=== PATIENT | female | born 1995 | race Caucasian/White ===

== ENCOUNTER 2018-03-11 02:55 | Emergency (ER) | payer OTHER, MEDICAID ==
[~2018-03-11] VITALS: Ht 170.2 cm; Wt 88.5 kg
[~2018-03-11 02:55] MED LIST: ACETAMINOPHEN-1 EAC1 PO; AMOXICILLIN 50500 MG PO; AMOXICILLIN875 MG PO; AUGMENTIN 875875 MG PO; BACTRIM DS TAB1 EACH PO; BACTROBAN CREAM30 G1 TOP; BIRTH CONTROL; BUTALB-APAP-CA1 EACH PO; FLAGYL500 MG PO; HYDROCODON-ACE1 EAC7 PO; IBUPROFEN 800800 M1 PO; LIDOCAINE VISC100 M1 SWISH&SPIT; NAPROSYN500 MG PO; NYSTATIN 100,0015 G1 SW&SWALLOW; PENICILLIN V P500 MG PO; PENICILLIN VK250 MG PO; VISTARIL 25 MG25 M1 PO; ZOFRAN ODT4 MG PO; ZOFRAN4 MG PO
[2018-03-11] MEDS ORDERED: HYDROCODONE-AP1 EAC6 PO (03:19)
[2018-03-11] MEDS ORDERED: PENICILLIN VK500 MG PO (03:19)
[2018-03-11 03:29] VITALS: BP 145/86
== END 2018-03-11 03:58 | disposition home or self-care (01) ==
LOC: M.ERS 02:55
DX: K08.89 Other specified disorders of teeth and supporting structures (principal); F17.210 Nicotine dependence, cigarettes, uncomplicated; Z91.041 Radiographic dye allergy status

== ENCOUNTER 2019-04-18 16:49 | Emergency (ER) | payer OTHER ==
[~2019-04-18] VITALS: Ht 170.2 cm; Wt 90.7 kg
[~2019-04-18 16:49] MED LIST changes: +HYDROCODONE-AP1 EAC6 PO; +PENICILLIN VK500 MG PO
[2019-04-18 17:30] LABS: INFLUENZA A ANTIGEN Negative (Negative); INFLUENZA B ANTIGEN Negative (Negative)
[2019-04-18 17:51] VITALS: BP 130/87
== END 2019-04-18 17:53 | disposition home or self-care (01) ==
LOC: M.ERS 16:49
PROVIDERS: Nurse Practitioner Family
DX: J06.9 Acute upper respiratory infection, unspecified (principal); F17.210 Nicotine dependence, cigarettes, uncomplicated; Z91.041 Radiographic dye allergy status

== ENCOUNTER 2020-05-28 00:14 | Emergency (ER) | payer OTHER ==
[~2020-05-28] VITALS: Ht 167.6 cm; Wt 70.3 kg
[2020-05-28 00:40] LABS: URINE BLOOD NEGATIVE (Negative); URINE CLARITY CLEAR; URINE COLOR YELLOW; URINE GLUCOSE-RANDOM TRACE (Negative); URINE KETONES NEGATIVE (Negative); URINE LEUKOCYTES-REFLEX NEGATIVE (Negative); URINE NITRITE-REFLEX NEGATIVE (Negative); URINE PROTEIN TRACE (Negative); URINE SPECIFIC GRAVITY >= 1.030 (1.005-1.030)
[2020-05-28 00:42] LABS: URINE BILIRUBIN 1+ (Negative)
[2020-05-28 00:43] LABS: ICTOTEST (BILI CONFIRMATORY) QNS (Negative)
[2020-05-28 01:12] LABS: ABSOLUTE BASOPHILS 0.1 thou/uL (0.0-0.2); ABSOLUTE EOSINOPHILS 0.1 thou/uL (0.0-0.7); ABSOLUTE LYMPHOCYTES 3.1 thou/uL (0.8-5.3); ABSOLUTE MONOCYTES 1.1 thou/uL (0.0-1.2); ABSOLUTE NEUTROPHILS 13.8 thou/uL (1.6-8.1); BASOPHILS 0.5 %; EOSINOPHILS 0.6 %; HEMATOCRIT 43.8 % (37.0-47.0); HEMOGLOBIN 14.5 gm/dL (12.0-15.0); LYMPHOCYTES 17.2 %; MCH 31.5 pg (26.0-34.0); MCHC 33.1 g/dL (28.0-37.0); MCV 95.1 fL (80.0-100.0); MONOCYTES 6.3 %; MPV 7.9 fl. (7.2-11.1); NUCLEATED RBCS 0 /100WBC; PLATELET COUNT* 323 thou/uL (150-400); POLYS 75.4 %; WBC 18.2 thou/uL (4.0-11.0)
[2020-05-28 01:19] LABS: CALCIUM 9.5 mg/dL (8.5-10.1); CREATININE 0.9 mg/dL (0.6-1.3); POTASSIUM 3.4 mmol/L (3.5-5.1)
[2020-05-28] MEDS ORDERED: HYDROCODON-ACE1 EAC8 PO (05:50)
[2020-05-28] MEDS ORDERED: ZOFRAN ODT4 MG PO (05:50)
[2020-05-28 06:57] VITALS: BP 106/49
== END 2020-05-28 07:01 | disposition home or self-care (01) ==
LOC: M.ERS 00:14
PROVIDERS: Emergency Medicine
DX: N20.0 Calculus of kidney (principal); F17.210 Nicotine dependence, cigarettes, uncomplicated; Z91.041 Radiographic dye allergy status

== ENCOUNTER 2020-11-08 22:31 | Emergency (ER) | payer OTHER ==
[~2020-11-08] VITALS: Ht 167.6 cm; Wt 59.0 kg
[~2020-11-08 22:31] MED LIST changes: +HYDROCODON-ACE1 EAC8 PO
[2020-11-09] MEDS ORDERED: ZOFRAN ODT4 MG PO (00:25)
[2020-11-09 00:42] VITALS: BP 119/71
== END 2020-11-09 00:42 | disposition home or self-care (01) ==
LOC: M.ERS 22:31
DX: K08.89 Other specified disorders of teeth and supporting structures (principal); R11.2 Nausea with vomiting, unspecified; F17.210 Nicotine dependence, cigarettes, uncomplicated; Z91.041 Radiographic dye allergy status

== ENCOUNTER 2020-12-10 18:18 | Emergency (ER) | payer OTHER ==
[~2020-12-10] VITALS: Ht 167.6 cm; Wt 56.7 kg
[2020-12-10 21:01] LABS: ABSOLUTE BASOPHILS 0.1 thou/uL (0.0-0.2); ABSOLUTE EOSINOPHILS 0.1 thou/uL (0.0-0.7); ABSOLUTE LYMPHOCYTES 2.6 thou/uL (0.8-5.3); ABSOLUTE MONOCYTES 0.6 thou/uL (0.0-1.2); ABSOLUTE NEUTROPHILS 8.1 thou/uL (1.6-8.1); BASOPHILS 0.5 %; EOSINOPHILS 0.5 %; HEMATOCRIT 44.1 % (37.0-47.0); HEMOGLOBIN 14.6 gm/dL (12.0-15.0); LYMPHOCYTES 22.7 %; MCH 31.5 pg (26.0-34.0); MCHC 33.2 g/dL (28.0-37.0); MCV 94.9 fL (80.0-100.0); MPV 7.4 fl. (7.2-11.1); NUCLEATED RBCS 0 /100WBC; PLATELET COUNT* 284 thou/uL (150-400); POLYS 71.3 %; RBC 4.65 mil/uL (4.20-5.00); RDW-CV 12.7 % (10.5-14.5); WBC 11.3 thou/uL (4.0-11.0)
[2020-12-10 21:10] LABS: CALCIUM 9.4 mg/dL (8.5-10.1); CREATININE 0.8 mg/dL (0.6-1.3); POTASSIUM 3.5 mmol/L (3.5-5.1)
[2020-12-10 21:15] LABS: ALBUMIN 4.5 g/dL (3.4-5.0); TOTAL BILIRUBIN 0.4 mg/dL (<0.1-1.0); TOTAL PROTEIN 8.2 g/dL (6.4-8.2)
[2020-12-10] MEDS ORDERED: ZPAK PO (21:26)
[2020-12-10 22:00] VITALS: BP 120/70
== END 2020-12-10 22:00 | disposition home or self-care (01) ==
LOC: M.ERS 18:18
PROVIDERS: Physician Assistant
DX: R59.1 Generalized enlarged lymph nodes (principal); F17.210 Nicotine dependence, cigarettes, uncomplicated; Z91.041 Radiographic dye allergy status

== ENCOUNTER → 2021-02-27 | Outpatient (CLI) | payer OTHER ==
[~2021-02-27] MED LIST changes: +ZPAK PO
== END ==
LOC: M.ULTRA 02-19 10:47
PROVIDERS: ATTEND Nurse Practitioner Family
DX: K80.20 Calculus of gallbladder without cholecystitis without obstruction (principal); R19.8 Other specified symptoms and signs involving the digestive system and abdomen; R11.2 Nausea with vomiting, unspecified; R10.84 Generalized abdominal pain

== ENCOUNTER 2021-03-18 12:44 | Emergency (ER) | payer OTHER | END 2021-03-18 14:42 | disposition left against medical advice (07) | LOC: M.ERS 12:44 | DX: R10.9 Unspecified abdominal pain (principal); R11.0 Nausea; Z53.21 Procedure and treatment not carried out due to patient leaving prior to being seen by health care provider ==

== ENCOUNTER 2021-04-13 04:34 | Emergency (ER) | payer OTHER ==
[~2021-04-13] VITALS: Ht 167.6 cm; Wt 56.7 kg
[2021-04-13] MEDS ORDERED: TRAZODONE HCL50 MG PO (05:31)
[2021-04-13] MEDS ORDERED: HYDROXYZINE HCL25 M2 PO (05:31)
[2021-04-13 05:41] VITALS: BP 147/81
== END 2021-04-13 05:42 | disposition home or self-care (01) ==
LOC: M.ERS 04:34
DX: F41.0 Panic disorder [episodic paroxysmal anxiety] (principal); F17.210 Nicotine dependence, cigarettes, uncomplicated; Z87.42 Personal history of other diseases of the female genital tract; Z91.041 Radiographic dye allergy status

== ENCOUNTER 2021-04-18 12:08 | Emergency (ER) | payer OTHER ==
[~2021-04-18] VITALS: Ht 167.6 cm; Wt 56.7 kg
[~2021-04-18 12:08] MED LIST changes: +HYDROXYZINE HCL25 M2 PO; +TRAZODONE HCL50 MG PO
[2021-04-18] MEDS ORDERED: PERCOCET 5-3251 EACH PO (12:20)
--- NOTE | 2021-04-18 12:32 | EKG ---
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
[2021-04-18 12:33] LABS: URINE BILIRUBIN NEGATIVE (Negative); URINE BLOOD NEGATIVE (Negative); URINE CLARITY CLEAR; URINE COLOR DARK YELLOW; URINE GLUCOSE-RANDOM NEGATIVE (Negative); URINE KETONES TRACE (Negative); URINE LEUKOCYTES-REFLEX TRACE (Negative); URINE NITRITE-REFLEX NEGATIVE (Negative); URINE PROTEIN NEGATIVE (Negative); URINE SPECIFIC GRAVITY 1.025 (1.005-1.030)
[2021-04-18 12:35] LABS: ABSOLUTE BASOPHILS 0.1 thou/uL (0.0-0.2); ABSOLUTE MONOCYTES 0.8 thou/uL (0.0-1.2); ABSOLUTE NEUTROPHILS 6.9 thou/uL (1.6-8.1); BASOPHILS 0.9 %; EOSINOPHILS 0.2 %; HEMATOCRIT 43.7 % (37.0-47.0); HEMOGLOBIN 14.9 gm/dL (12.0-15.0); LYMPHOCYTES 27.9 %; MCHC 34.1 g/dL (28.0-37.0); MCV 93.8 fL (80.0-100.0); MONOCYTES 7.1 %; MPV 7.8 fl. (7.2-11.1); NUCLEATED RBCS 0 /100WBC; PLATELET COUNT* 362 thou/uL (150-400); POLYS 63.9 %; RBC 4.66 mil/uL (4.20-5.00); RDW-CV 12.6 % (10.5-14.5); WBC 10.8 thou/uL (4.0-11.0)
[2021-04-18 12:40] LABS: CREATININE 1.1 mg/dL (0.6-1.3); POTASSIUM 3.9 mmol/L (3.5-5.1)
[2021-04-18 12:42] LABS: BACTERIA-REFLEX 1-9 Few /HPF (None Seen); CRYSTALS None Seen /LPF (None Seen); MUCUS 4-6 Moderate strn/LPF (None Seen); SQUAMOUS >10 Many /LPF (0-3)
[2021-04-18 12:43] LABS: URINE RBC None Seen /HPF (0-2)
[2021-04-18 12:45] LABS: CASTS None Seen /LPF (None Seen); URINE WBC-REFLEX 0-5 Rare /HPF (0-5); YEAST-REFLEX Present (None Seen)
[2021-04-18 12:50] LABS: ALBUMIN 4.2 g/dL (3.4-5.0); MAGNESIUM 1.7 mg/dL (1.8-2.4); TOTAL BILIRUBIN 0.6 mg/dL (<0.1-1.0); TOTAL PROTEIN 7.7 g/dL (6.4-8.2)
[2021-04-18] MEDS ORDERED: ZOFRAN ODT4 MG DISSOLVE (18:44)
[2021-04-18] MEDS ORDERED: HYDROCODON-ACE1 EAC7 PO (18:44)
[2021-04-18] MEDS ORDERED: AUGMENTIN 875-1 EACH PO (18:47)
[2021-04-18 19:45] VITALS: BP 111/59
== END 2021-04-18 19:45 | disposition still patient (30) ==
LOC: M.ERS 12:08
PROVIDERS: Emergency Medicine Emergency Medical Services
DX: N39.0 Urinary tract infection, site not specified (principal); R07.89 Other chest pain; B37.9 Candidiasis, unspecified; R10.12 Left upper quadrant pain; R10.32 Left lower quadrant pain; F41.9 Anxiety disorder, unspecified; F17.210 Nicotine dependence, cigarettes, uncomplicated; Z90.49 Acquired absence of other specified parts of digestive tract; Z79.899 Other long term (current) drug therapy; Z91.041 Radiographic dye allergy status